=== PATIENT | male | born 1965 | race Caucasian/White ===

== ENCOUNTER 2017-06-25 23:40 | Emergency (ER) | payer MEDICAID ==
[~2017-06-25] VITALS: Ht 185.4 cm; Wt 91.2 kg
[~2017-06-25 23:40] MED LIST: CYCLOBENZAPRINE10 MG ORAL; IBUPROFEN600 MG ORAL; NKM
[2017-06-26] MEDS ORDERED: Bacitracin Oint UD TOPIC ONE (00:15)
[2017-06-26] MEDS ORDERED: DOXYCYCLINE MO100 MG ORAL (00:16)
--- NOTE | 2017-06-26 00:16 | Emergency Room Report ---
History of Present Illness General Chief Complaint: Upper Extremity Injury Source: Patient Present Illness HPI This is a 51-year-old male who is right-hand dominant. He presents with chief complaint splinter in his right index finger. He was cleaning the floor yesterday and had a splinter into his right index finger. He went to get a manicure and had it removed. He thought that there may be still a piece in there. Complaining of some pain and tenderness in that area. No drainage. No fever chills but no nausea no vomiting. No other injury. Allergies: Coded Allergies: No Known Allergies (Unverified , 06/19/13) Patient History Past Medical History: see triage record, old chart reviewed Past Surgical History: other Pertinent Family History: none Social History: Denies: smoking Immunizations: other Reviewed Nursing Documentation: PMH: Agreed, PSxH: Agreed Review of Systems Eye: Denies: eye pain, blurred vision ENT: Denies: ear pain, nose congestion, throat swelling Respiratory: Denies: cough, shortness of breath Cardiovascular: Denies: chest pain, palpitations Gastrointestinal: Denies: abdominal pain, diarrhea, nausea, vomiting Musculoskeletal: Denies: back pain, joint pain Skin: Denies: rash Neurological: Denies: headache, numbness Endocrine: Denies: increased thirst, increased urine Hematologic/Lymphatic: Denies: easy bruising All Other Systems: negative except mentioned in HPI Physical Exam Vital Signs Date Time Temp Pulse Resp B/P (MAP) Pulse Ox O2 Delivery O2 Flow Rate FiO2 06/25/17 23:47 98.1 83 16 123/82 96 Room Air vitals normal Sp02 EP Interpretation: reviewed, normal General Appearance: well appearing, no apparent distress, alert Head: normocephalic, atraumatic Eyes: bilateral eye PERRL, bilateral eye EOMI ENT: hearing grossly normal, normal pharynx Neck: full range of motion, supple, no meningismus Respiratory: chest non-tender, lungs clear, normal breath sounds Cardiovascular #1: regular rate, rhythm, no murmur Gastrointestinal: normal bowel sounds, non tender, no mass, no organomegaly, no bruit, non-distended Musculoskeletal: back normal, gait/station normal, normal range of motion, other - Right index finger: There is tenderness on the radial aspect of the nail. No obvious foreign body. Sensation normal. Full range of motion of the joint. Neurologic: alert, oriented x3 Psychiatric: mood/affect normal Skin: warm/dry Medical Decision Making Diagnostic Impression: Primary Impression: Foreign body (FB) in soft tissue ER Course Patient with a foreign body in his finger nail. No obvious residual foreign body. They may still be small specks of foreign body. There was only serous drainage when I tried to look for it. We'll put on antibiotics Last Vital Signs Date Time Temp Pulse Resp B/P (MAP) Pulse Ox O2 Delivery O2 Flow Rate FiO2 06/25/17 23:47 98.1 83 16 123/82 96 Room Air Status: improved Disposition: HOME, SELF-CARE Condition: Stable Scripts Doxycycline Monohydrate* (DOXYCYCLINE MONOHYDRATE*) 100 Mg Capsule 100 MG ORAL Q12H, #14 CAP 0 Refills Prov: VANGIE ORDAZ M.D. 06/26/17 Referrals: [facility],REFERRING (PCP) Additional Instructions: Keep wound clean. Followup with your Dr. in 2-3 days for recheck. Return if symptom worsen. VANGIE ORDAZ M.D. Jun 26, 2017 00:16
[2017-06-26 00:23] VITALS: BP 123/82
== END 2017-06-26 00:25 | disposition home or self-care (01) ==
LOC: EMR 23:51
DX: S60.450A Superficial foreign body of right index finger, initial encounter (principal); W45.8XXA Other foreign body or object entering through skin, initial encounter; Y93.E5 Activity, floor mopping and cleaning; Y92.009 Unspecified place in unspecified non-institutional (private) residence as the place of occurrence of the external cause
CPT/HCPCS: 99283

== ENCOUNTER 2018-01-02 16:08 | Emergency (ER) | payer MEDICAID ==
[~2018-01-02] VITALS: Ht 188 cm; Wt 90.7 kg
[~2018-01-02 16:08] MED LIST changes: +DOXYCYCLINE MO100 MG ORAL
[2018-01-02] MEDS ORDERED: ADDERAL20 MG ORAL (16:19)
--- NOTE | 2018-01-02 16:51 | Emergency Room Report ---
History of Present Illness General Chief Complaint: General Complaint Source: Patient Present Illness HPI 52-year-old male patient presents ER complaining of left shoulder pain radiating to his elbow. Reports pain is present for 2 weeks. Reports that he sleeps on his left side which has exacerbated his pain. Denies other Injury. Denies history of cardiac disease. Denies chest pain, shortness breath, abdominal pain. Denies history of CO or stroke. Reports pain with movement. Reports pain is reproducible. Denies other acute symptoms. Denies hitting his head or loss of consciousness. Allergies: Coded Allergies: No Known Allergies (Unverified , 06/19/13) Patient History Past Medical History: see triage record Reviewed Nursing Documentation: PMH: Agreed; PSxH: Agreed Nursing Documentation-PMH Past Medical History: No History, Except For Hx Cardiac Problems: No Hx Hypertension: No Hx Pacemaker: No Hx Asthma: No Hx COPD: No Hx Diabetes: No Hx Cancer: No Hx Gastrointestinal Problems: No Hx Dialysis: No History Of Psychiatric Problem: Yes - ADHD Hx Neurological Problems: No Hx Cerebrovascular Accident: No Hx Seizures: No Review of Systems All Other Systems: negative except mentioned in HPI Physical Exam Vital Signs Date Time Temp Pulse Resp B/P (MAP) Pulse Ox O2 Delivery O2 Flow Rate FiO2 01/02/18 16:13 98.1 88 16 140/97 96 Room Air 98.1 Sp02 EP Interpretation: reviewed, normal General Appearance: well appearing, no apparent distress, alert, GCS 15, non- toxic Head: normocephalic, atraumatic Neck: full range of motion Respiratory: lungs clear, normal breath sounds, no rhonchi, no respiratory distress, no accessory muscle use, no wheezing, speaking full sentences Cardiovascular #1: regular rate, rhythm, no edema Genitourinary: no CVA tenderness Musculoskeletal: back normal, digits/nails normal, gait/station normal, normal range of motion, non-tender, other - NVI, AIN/PIN/Radial nerve intact, axillary nerve intact, able to make fist, positive Torrez, negative sulcus sign, negative skin tenting, negative Adson test Neurologic: alert, oriented x3, responsive, motor strength/tone normal, sensory intact Psychiatric: mood/affect normal Skin: no rash Medical Decision Making PA Attestation Dr. Rojas is my supervising Physician whom patient management has been discussed with. Diagnostic Impression: Primary Impression: Shoulder impingement ER Course Pt. presents to the ED c/o left shoulder pain. Ddx considered but are not limited to fracture, sprain, strain, contusion, dislocation. No erythema, no warmth to touch, no fever, nontoxic appearing, low suspicion for septic joint. Vital signs: are WNL, pt. is afebrile Ordered X-ray and pain medication. ER COURSE Provided with pain medication. An X-ray of the left shoulder shows no acute disease, acromioclavicular joint arthrosis per the official reading. Take ibuprofen for pain symptoms. Possible muscle spasm vs impingement and physical exam findings, positive Torrez sign. follow-up with primary care provider to assess referral to orthopedic and physical therapy as needed. Performed range of motion exercises to prevent stiffness. Reports feels better with arm in sling. Sling was applied to the left shoulder and was checked afterwards by me showing good alignment and support with distal neurovascular functioning intact. Perform range of motion exercises. Do not sleep on left arm. Patient instructed on RICE method: rest, ice, compression, elevation. Patient instructed on rest, ice and heat. Patient instructed to be WBAT Followup with primary care provider. Discuss referral to ortho/pain management/ PT as needed. Discuss further imaging with MRI/CT as needed. DISCHARGE: -Rx provided for Ibuprofen for pain symptoms. -Rx provided for Methocarbamol. SE drowsiness, do not drink, drive, or operate heavy machinery while using. At this time pt. is stable for d/c to home. Patient is resting comfortably, in no acute distress, nontoxic appearing, talking without difficulty. Will provide printed patient care instructions, and any necessary prescriptions. Patient instructed to follow with primary care provider in 3 - 5 days and to request further follow-up as needed. Care plan and follow up instructions have been discussed with the patient prior to discharge. Take medications as directed. Patient questions asked and answered. Patient reports understanding and agreement to treatment plan. ER precautions given, patient instructed to return to ER immediately for any new or worsening of symptoms. - Please note that this Emergency Department Report was dictated using [employer] technology software, occasionally this can lead to erroneous entry secondary to interpretation by the dictation equipment. Other X-Ray Diagnostic Results Other X-Ray Diagnostic Results : X-Ray ordered: shoulder left # of Views/Limited Vs Complete: 4 View Indication: Pain EP Interpretation: Yes PA Xray: Interpretation reviewed, by supervising MD, and agrees with findings. Interpretation: no dislocation, no soft tissue swelling, no fractures, other - acromioclavicular joint arthrosis Impression: Other - arthrosis PA Scribe Text Estrada Dent PA-C Last Vital Signs Date Time Temp Pulse Resp B/P (MAP) Pulse Ox O2 Delivery O2 Flow Rate FiO2 01/02/18 16:13 98.1 88 16 140/97 96 Room Air 98.1 Disposition: HOME, SELF-CARE Condition: Stable Scripts Methocarbamol* (ROBAXIN*) 500 Mg Tablet 500 MG PO TID, #21 TAB 0 Refills Prov: Denis Dent 01/02/18 Ibuprofen* (MOTRIN*) 600 Mg Tablet 600 MG ORAL Q8H PRN for For Pain, #30 TAB 0 Refills Prov: Denis Dent 01/02/18 Patient Instructions: Generic Shoulder Exercises-SportsMed, Shoulder Pain, Easy -to-Read Additional Instructions: Patient instructed to follow up with primary care provider and discuss further referral to orthopedics and physical therapy. Discuss further imaging at that time. Patient instructed on RICE method: rest, ice, compression, elevation. Patient instructed to WBAT. Take medications as directed. SE drowsiness, do not take prior to drinking, driving, or operating heavy machinery. Patient questions asked and answered. ER precautions given, patient instructed to return to ER immediately for any new or worsening of symptoms. Denis Dent Jan 02, 2018 16:51
[2018-01-02 17:43] VITALS: BP 140/97
[2018-01-02] MEDS ORDERED: ROBAXIN500 MG PO (17:43)
[2018-01-02] MEDS ORDERED: IBUPROFEN600 MG ORAL (17:43)
--- NOTE | 2018-01-02 17:58 | Diagnostic Imaging Report ---
EXAM: XR Left Shoulder Complete, 2 or More Views CLINICAL HISTORY: PAIN TECHNIQUE: Two or more views of the left shoulder. COMPARISON: No relevant prior studies available. FINDINGS: Bones/joints: Mild acromioclavicular joint arthrosis. No acute fracture. No dislocation. Soft tissues: Unremarkable. IMPRESSION: 1. No acute abdomen. 2. Mild acromioclavicular joint arthrosis.
[2018-01-02 18:10] VITALS: BP 140/97
== END 2018-01-02 18:19 | disposition home or self-care (01) ==
LOC: EMR 16:50
DX: M25.812 Other specified joint disorders, left shoulder (principal); F90.9 Attention-deficit hyperactivity disorder, unspecified type
CPT/HCPCS: 99284

== ENCOUNTER 2018-04-30 14:01 | Emergency (ER) | payer MEDICAID ==
[~2018-04-30] VITALS: Ht 188 cm; Wt 96.2 kg
[~2018-04-30 14:01] MED LIST changes: +ADDERAL20 MG ORAL; +ROBAXIN500 MG PO
[2018-04-30 14:20] VITALS: BP 152/99
--- NOTE | 2018-04-30 14:35 | Emergency Room Report ---
History of Present Illness General Chief Complaint: Skin Rash/Abscess Source: Patient Present Illness HPI 51 YO male presents to the ED c/o Itching, swelling, and erythema of left forearm x 2 days. He reports 7/10 in severity burning sensation and states lesion originated as a spider bite. Pt. denies fevers, chills or swollen tender lymph nodes. Denies lesions/rashes elsewhere on the body. Denies new medications or body washes or creams. Denies swelling of the lips, tongue , throat or airway. Denies wheezing, or shortness of breath. Denies recent travel, recent illness or ill contacts. denies blisters, oral lesions, or sloughing of the skin. Allergies: Coded Allergies: No Known Allergies (Unverified , 06/19/13) Patient History Past Medical History: see triage record Past Surgical History: none Pertinent Family History: none Reviewed Nursing Documentation: PMH: Agreed; PSxH: Agreed Nursing Documentation-PMH Past Medical History: No Stated History Hx Cardiac Problems: No Hx Hypertension: No Hx Pacemaker: No Hx Asthma: No Hx COPD: No Hx Diabetes: No Hx Cancer: No Hx Gastrointestinal Problems: No Hx Dialysis: No Hx Neurological Problems: No Hx Cerebrovascular Accident: No Hx Seizures: No Review of Systems All Other Systems: negative except mentioned in HPI Physical Exam Vital Signs Date Time Temp Pulse Resp B/P (MAP) Pulse Ox O2 Delivery O2 Flow Rate FiO2 04/30/18 14:12 98.2 86 18 152/99 97 Room Air Sp02 EP Interpretation: reviewed, normal General Appearance: no apparent distress, alert, GCS 15, non-toxic Head: normocephalic, atraumatic Eyes: bilateral eye normal inspection, bilateral eye PERRL ENT: hearing grossly normal, no angioedema, normal voice Neck: full range of motion Respiratory: lungs clear, normal breath sounds, no wheezing, speaking full sentences Cardiovascular #1: regular rate, rhythm Musculoskeletal: back normal, gait/station normal, normal range of motion, non- tender Neurologic: alert, oriented x3, responsive, motor strength/tone normal, sensory intact, speech normal, grossly normal Psychiatric: judgement/insight normal Skin: warm/dry, well hydrated, other - indurated lesion with surrounding erythema and swelling approximately 3 inches in diameter. no blisters or vesicles. no palpable fluctuance Lymphatic: no adenopathy Medical Decision Making PA Attestation Dr. Rojas is my supervising Physician whom patient management has been discussed with. Diagnostic Impression: Primary Impression: Infected insect bite of forearm Qualified Codes: S50.862A - Insect bite (nonvenomous) of left forearm, initial encounter; L08.9 - Local infection of the skin and subcutaneous tissue, unspecified; W57.XXXA - Bitten or stung by nonvenomous insect and other nonvenomous arthropods, initial encounter Additional Impression: Cellulitis Qualified Codes: L03.114 - Cellulitis of left upper limb ER Course Pt. presents to the ED c/o Itching, swelling, and erythema of left forearm x 2 days. He reports 7/10 in severity burning sensation and states lesion originated as a spider bite. Pt. denies fevers, chills or swollen tender lymph nodes. Denies lesions/rashes elsewhere on the body. Denies new medications or body washes or creams. Denies swelling of the lips, tongue , throat or airway. Denies wheezing, or shortness of breath. Denies recent travel, recent illness or ill contacts. denies blisters, oral lesions, or sloughing of the skin. Ddx considered but are not limited to cellulitis, scabies, insect bites, tic bites, spider bites, contact dermatitis, Drug reaction, allergic reaction, fungal infection, lice. Vital signs: are WNL, pt. is afebrile H&PE are most consistent with infected insect bite. ORDERS: none required at this time, the diagnosis is clinical ED INTERVENTIONS: None required at this time. - no palpable fluctuance to warrant I & D. DISCHARGE: At this time pt. is stable for d/c to home. Will provide printed patient care instructions, and any necessary prescriptions. Care plan and follow up instructions have been discussed with the patient prior to discharge. Last Vital Signs Date Time Temp Pulse Resp B/P (MAP) Pulse Ox O2 Delivery O2 Flow Rate FiO2 04/30/18 14:20 98.2 86 18 152/99 97 Room Air Disposition: HOME, SELF-CARE Condition: Stable Scripts Hydrocortisone (Hydrocortisone Cream 2.5%) Y Cream.appl 1 APPLIC TP BID, #22 GM Prov: Yu Sanches 04/30/18 Trimethoprim/Sulfamethoxazole 160/800* (BACTRIM DS TABLET*) 1 Each Tablet 1 TAB ORAL TWICE A DAY for 7 Days, #14 TAB Prov: Yu Sanches 04/30/18 Cephalexin* (KEFLEX*) 500 Mg Capsule 500 MG ORAL EVERY 12 HOURS for 7 Days, #14 CAP 0 Refills Prov: Yu Sanches 04/30/18 Patient Instructions: Insect Bite, [id number] Additional Instructions: Take medications as directed. Follow up with a Primary Care Provider in 3-5 days, even if your symptoms have resolved. --Please review list of primary care clinics, if you do not already have a primary care provider Return sooner to ED if new symptoms occur, or current symptoms become worse. - Please note that this Emergency Department Report was dictated using [employer] technology software, occasionally this can lead to erroneous entry secondary to interpretation by the dictation equipment. Yu Sanches Apr 30, 2018 14:35
[2018-04-30] MEDS ORDERED: BACTRIM DS TAB1 EAC1 ORAL (14:37)
[2018-04-30] MEDS ORDERED: HYDROCORTISONE30 G2 TP (14:37)
[2018-04-30] MEDS ORDERED: CEPHALEXIN500 MG ORAL (14:37)
[2018-04-30 14:44] VITALS: BP 152/99
== END 2018-04-30 14:45 | disposition home or self-care (01) ==
LOC: EMR 14:41
DX: S50.862A Insect bite (nonvenomous) of left forearm, initial encounter (principal); W57.XXXA Bitten or stung by nonvenomous insect and other nonvenomous arthropods, initial encounter; Y92.9 Unspecified place or not applicable; L03.114 Cellulitis of left upper limb
CPT/HCPCS: 99283

== ENCOUNTER 2018-10-09 15:28 | Emergency (ER) | payer MEDICAID ==
[~2018-10-09] VITALS: Ht 188 cm; Wt 95.3 kg
[~2018-10-09 15:28] MED LIST changes: +BACTRIM DS TAB1 EAC1 ORAL; +CEPHALEXIN500 MG ORAL; +HYDROCORTISONE30 G2 TP
--- NOTE | 2018-10-09 16:04 | NUR ---
ED Nurse Note: PT WALKED IN TO ER TODAY FROM HOME. AOX4. PT C/O LEFT SIDED LOWER BACK PAIN, 7/ X 3 DAYS AGO. PT DENIES ANY RECENT INJURY OR TRAUMA. PT DENIES ANY NUMBNESS OR TINGLING. GAIT STEADY. PT STATES HE HAS HX OF KIDNEY STONES AND STATES THE PAIN IS SIMILAR BUT NOT SEVERE.
[2018-10-09 16:05] VITALS: BP 128/84
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
[2018-10-09 16:53] LABS: BILIRUBIN, URINE 2+ (NEGATIVE); GLUCOSE, URINE (UA) NEGATIVE (NEGATIVE); KETONES,URINE NEGATIVE (NEGATIVE); LEUKOCYTE ESTERASE ,URINE 2+ (NEGATIVE); NITRITE,URINE POSITIVE (NEGATIVE); PH,URINE 5 (4.5-8.0); PROTEIN,URINE NEGATIVE (NEGATIVE); UROBILINOGEN,URINE 8 MG/DL (0.0-1.0)
[2018-10-09 16:54] LABS: APPEARANCE,URINE SLIGHTLY CLOUDY; COLOR,URINE ORANGE
[2018-10-09] MEDS ORDERED: CEPHALEXIN500 MG ORAL (17:16)
[2018-10-09] MEDS ORDERED: PHENAZOPYRIDIN100 MG ORAL (17:16)
[2018-10-09 17:26] VITALS: BP 126/86
--- NOTE | 2018-10-09 17:26 | NUR ---
ED Nurse Note: PT SITTING PEACEFULLY IN BED IN NAD. AOX4. PRESCRIPTIONS AND DISCHARGE PAPERWORK EXPLAINED TO PT. PT VERBALIZES UNDERSTANDING AND ALL QUESTIONS ANSWERED. PRESCRIPTIONS AND DISCHARGE PAPERWORK GIVEN TO PT AND ID WRISTBAND REMOVED. PT WALKED OUT OF ER WITH STEADY GAIT AND ALL BELONGINGS.
== END 2018-10-09 17:28 | disposition home or self-care (01) ==
LOC: EMR 16:35
DX: N39.0 Urinary tract infection, site not specified (principal)
CPT/HCPCS: 81003; 87086; 99283

== ENCOUNTER 2018-10-12 03:40 | Emergency (ER) | payer MEDICAID ==
[~2018-10-12] VITALS: Ht 188 cm; Wt 92.5 kg
[~2018-10-12 03:40] MED LIST changes: +PHENAZOPYRIDIN100 MG ORAL
--- NOTE | 2018-10-12 03:59 | Emergency Room Report ---
History of Present Illness General Chief Complaint: Pain Source: Patient Present Illness HPI Is a 52-year-old male with a history of recurrent urinary tract infection. He presents with chief complaint of left pelvic pain. He was here about 3 days ago and diagnosed a UTI. Was given Keflex. Initially he had flank pain but that resolved but now the pain is localized to the left pelvic area. His been ongoing for the last 2 days. No fever chills but no nausea no vomiting. No dysuria frequency. He did not know if anything different antibiotics. He said Bactrim worked for him in the past. Allergies: Coded Allergies: No Known Allergies (Unverified , 06/19/13) Patient History Past Medical History: see triage record, old chart reviewed Past Surgical History: none Pertinent Family History: none Social History: Reports: smoking Immunizations: other Reviewed Nursing Documentation: PMH: Agreed; PSxH: Agreed Nursing Documentation-PMH Hx Hypertension: No Hx Pacemaker: No Hx Asthma: No Hx COPD: No Hx Diabetes: No Hx Cancer: No Hx Gastrointestinal Problems: No Hx Dialysis: No Hx Neurological Problems: No Hx Cerebrovascular Accident: No Hx Seizures: No Review of Systems Eye: Denies: eye pain, blurred vision ENT: Denies: ear pain, nose congestion, throat swelling Respiratory: Denies: cough, shortness of breath Cardiovascular: Denies: chest pain, palpitations Gastrointestinal: Reports: abdominal pain; Denies: diarrhea, nausea, vomiting Musculoskeletal: Denies: back pain, joint pain Skin: Denies: rash Neurological: Denies: headache, numbness Endocrine: Denies: increased thirst, increased urine Hematologic/Lymphatic: Denies: easy bruising All Other Systems: negative except mentioned in HPI Physical Exam Vital Signs Date Time Temp Pulse Resp B/P (MAP) Pulse Ox O2 Delivery O2 Flow Rate FiO2 10/12/18 03:45 98.1 83 16 132/94 95 Room Air vitals normal Sp02 EP Interpretation: reviewed, normal General Appearance: well appearing, no apparent distress, alert Head: normocephalic, atraumatic Eyes: bilateral eye PERRL, bilateral eye EOMI ENT: hearing grossly normal, normal pharynx Neck: full range of motion, supple, no meningismus Respiratory: chest non-tender, lungs clear, normal breath sounds Cardiovascular #1: regular rate, rhythm, no murmur Gastrointestinal: normal bowel sounds, non tender, no mass, no organomegaly, no bruit, non-distended Musculoskeletal: back normal, gait/station normal, normal range of motion Psychiatric: mood/affect normal Skin: warm/dry Medical Decision Making Diagnostic Impression: Primary Impression: Abdominal pain Qualified Codes: R10.32 - Left lower quadrant pain ER Course Patient with left lower quadrant abdominal pain/pelvic pain. Urinalysis clean. The patient continue with antibiotics. No evidence of hernia, diverticulitis , appendicitis to name a few. No evidence of acute abdomen or obstruction. CT/MRI/US Diagnostic Results CT/MRI/US Diagnostic Results : Imaging Test Ordered: CT abdomen and pelvis Impression Read by radiologist. Appendix normal. No obstruction. Diverticulosis without diverticulitis. Last Vital Signs Date Time Temp Pulse Resp B/P (MAP) Pulse Ox O2 Delivery O2 Flow Rate FiO2 10/12/18 03:45 98.1 83 16 132/94 95 Room Air Status: improved Disposition: HOME, SELF-CARE Condition: Stable Scripts Ibuprofen* (MOTRIN*) 600 Mg Tablet 600 MG ORAL THREE TIMES A DAY, #30 TAB 0 Refills Prov: Lul Faria MD 10/12/18 Referrals: [facility],REFERRING (PCP) Additional Instructions: Continue with antibiotics. Follow-up with your doctor in 7 days. Return if worse. Lul Faria MD Oct 12, 2018 03:59
--- NOTE | 2018-10-12 04:00 | NUR ---
ED Nurse Note: RECIEVED PT FROM HOME, AWAKE, ALERT AND ORIENTED X 4, PT SEEN HERE AND TREATED FOR UTI 2 DAYS AGO AND STATES STILL HAS PAIN AT 4/10, DENIES FEVERS, NAUSEA, VOMITING OR PAIN AT HIGHER LEVEL, PT URINE SAMPLE COLLECTED AND ASSISTED TO AJAY, PT DENIES CP, SOB, OR ANY OTHER COMPLAINTS OR DISCOMFORTS, WILL RESUME CARE ORDERED AND CONTINUE TO CLOSELY MONITOR.
[2018-10-12 04:30] LABS: APPEARANCE,URINE CLEAR; BILIRUBIN, URINE NEGATIVE (NEGATIVE); GLUCOSE, URINE (UA) NEGATIVE (NEGATIVE); KETONES,URINE NEGATIVE (NEGATIVE); LEUKOCYTE ESTERASE ,URINE 1+ (NEGATIVE); PH,URINE 6 (4.5-8.0); PROTEIN,URINE NEGATIVE (NEGATIVE); UROBILINOGEN,URINE 1 MG/DL (0.0-1.0)
[2018-10-12 04:35] LABS: COLOR,URINE YELLOW
--- NOTE | 2018-10-12 04:35 | NUR ---
ED Nurse Note: PT RETURNED FROM IMAGING, NO DISTRESS OR CHANGES NOTED.
[2018-10-12 04:36] LABS: NITRITE,URINE NEGATIVE (NEGATIVE)
[2018-10-12 05:15] VITALS: BP 129/88
[2018-10-12] MEDS ORDERED: IBUPROFEN600 MG ORAL (05:26)
--- NOTE | 2018-10-12 05:30 | NUR ---
ER DISCHARGE NOTE: Patient is cleared to be discharged per ERMD, pt is aox4, on room air, with stable vital signs. pt was given dc and prescription instructions, pt was able to verbalize understanding, pt id band removed without complications. pt is able to ambulate with steady gait. pt took all belongings.
[2018-10-12 05:45] VITALS: BP 129/88
--- NOTE | 2018-10-12 11:42 | Diagnostic Imaging Report ---
Indication: Abdominal pain and groin pain for one week Technique: Spiral acquisitions obtained through the abdomen and pelvis. No oral contrast utilized, per emergency room physician request No IV contrast utilized, per referring physician request.. Multiplanar reconstructions were generated. Total dose length product 860.43 mGycm. CTDIvol(s) 15.03 mGy. Dose reduction achieved using automated exposure control Comparison: 11/05/2009 Findings: The appendix is normal. There is no evidence of diverticulosis or acute diverticulitis. No small bowel distention. No free or loculated intraperitoneal gas or fluid is evident. There is a small duodenal diverticulum incidentally noted. Distal esophagus and stomach are unremarkable. Lack of IV contrast was assessment of the solid organs. The liver, gallbladder, bile ducts, pancreas, spleen, adrenals, kidneys are unremarkable. No renal arterial calculi, hydronephrosis, or hydroureter. Previously demonstrated small right renal calculus is no longer evident. No retroperitoneal or mesenteric mass or adenopathy. No pelvic mass or adenopathy. The included lung bases demonstrate some atelectasis or scarring in the inferior lingula. The lumbar spine demonstrates mild degenerative spondylosis and likely spinal stenosis predominantly due to short pedicles. This is also evident previously. Impression: No acute abnormality. Spinal stenosis Incidental finding small duodenal diverticulum The CT scanner at [facility] is accredited by the [employer] and the scans are performed using protocols designed to limit radiation exposure to as low as reasonably achievable to attain images of sufficient resolution adequate for diagnostic evaluation.
== END 2018-10-12 05:45 | disposition home or self-care (01) ==
LOC: EMR 03:57
DX: R10.32 Left lower quadrant pain (principal); F17.200 Nicotine dependence, unspecified, uncomplicated; K57.90 Diverticulosis of intestine, part unspecified, without perforation or abscess without bleeding
CPT/HCPCS: 74176; 81003; 99284

== ENCOUNTER 2018-10-16 02:26 | Emergency (ER) | payer MEDICAID ==
[~2018-10-16] VITALS: Ht 188 cm; Wt 93.0 kg
--- NOTE | 2018-10-16 02:35 | NUR ---
ED Nurse Note: patient walked into ED c/o upper left leg pain that he rates a 7/10 pain, patient states that he firt experienced pain on the lower back after being diagnosed with a UTI however state that the pain has now moved to the patients left upper leg, patient is alert and oriented x4, ambulatory with a steady gait, with a slight elevation on blood pressure of 161/98
[2018-10-16 02:37] VITALS: BP 161/101
[2018-10-16] MEDS ORDERED: PHENAZOPYRIDIN100 MG ORAL (02:41)
[2018-10-16 03:02] LABS: APPEARANCE,URINE CLEAR; BILIRUBIN, URINE 3+ (NEGATIVE); COLOR,URINE BROWN; GLUCOSE, URINE (UA) NEGATIVE (NEGATIVE); KETONES,URINE NEGATIVE (NEGATIVE); LEUKOCYTE ESTERASE ,URINE 1+ (NEGATIVE); NITRITE,URINE POSITIVE (NEGATIVE); PH,URINE 6 (4.5-8.0); PROTEIN,URINE NEGATIVE (NEGATIVE); UROBILINOGEN,URINE 8 MG/DL (0.0-1.0)
[2018-10-16] MEDS ORDERED: IBUPROFEN600 MG ORAL (03:40)
[2018-10-16] MEDS ORDERED: ROBAXIN-750750 MG PO (03:40)
[2018-10-16 03:46] VITALS: BP 142/85
--- NOTE | 2018-10-16 04:12 | Emergency Room Report ---
History of Present Illness General Chief Complaint: Male Urogenital Problems Source: Patient Present Illness HPI 52-year-old male presents ED for evaluation. Complaining of left groin pain. Started yesterday. Dull, 5 out of 10, nonradiating. Denies any scrotal pain. Denies any dysuria or hematuria. Denies any urethral discharge. States he was seen here a few days ago for back pain. Had UTI and was discharged on antibiotics. States he completed antibiotic prescription. Denies any back pain at this time. No other aggravating relieving factors. Denies any other associated symptoms Allergies: Coded Allergies: No Known Allergies (Unverified , 06/19/13) Patient History Past Medical History: none Past Surgical History: none Pertinent Family History: none Social History: Denies: smoking, alcohol use, drug use Immunizations: UTD Reviewed Nursing Documentation: PMH: Agreed; PSxH: Agreed Nursing Documentation-PMH Past Medical History: No History, Except For Hx Hypertension: No Hx Pacemaker: No Hx Asthma: No Hx COPD: No Hx Diabetes: No Hx Cancer: No Hx Gastrointestinal Problems: No Hx Dialysis: No Hx Neurological Problems: No Hx Cerebrovascular Accident: No Hx Seizures: No Review of Systems All Other Systems: negative except mentioned in HPI Physical Exam Vital Signs Date Time Temp Pulse Resp B/P (MAP) Pulse Ox O2 Delivery O2 Flow Rate FiO2 10/16/18 02:33 98.6 98 16 161/101 96 Room Air Sp02 EP Interpretation: reviewed, normal General Appearance: no apparent distress, alert, GCS 15, non-toxic Head: normocephalic, atraumatic Eyes: bilateral eye normal inspection, bilateral eye PERRL ENT: hearing grossly normal, normal pharynx, no angioedema, normal voice Neck: full range of motion, supple/symm/no masses Respiratory: chest non-tender, lungs clear, normal breath sounds, speaking full sentences Cardiovascular #1: regular rate, rhythm, no edema Cardiovascular #2: 2+ carotid (R), 2+ carotid (L), 2+ radial (R), 2+ radial (L) , 2+ dorsalis pedis (R), 2+ dorsalis pedis (L) Gastrointestinal: normal bowel sounds, non tender, soft, non-distended, no guarding, no rebound Rectal: deferred Genitourinary: normal inspection, no CVA tenderness, scrotum normal, other - TTP L inguinal area. no fluctuance or discharge. no evidence of hernia Musculoskeletal: back normal, gait/station normal, normal range of motion, non- tender Neurologic: alert, oriented x3, responsive, motor strength/tone normal, sensory intact, speech normal Psychiatric: judgement/insight normal, memory normal, mood/affect normal, no suicidal/homicidal ideation Reflexes: 3+ bicep (R), 3+ bicep (L), 3+ tricep (R), 3+ tricep (L), 3+ knee (R) , 3+ knee (L) Skin: normal color, no rash, warm/dry, well hydrated Lymphatic: no adenopathy Medical Decision Making Diagnostic Impression: Primary Impression: Groin pain Qualified Codes: R10.32 - Left lower quadrant pain ER Course Hospital Course 52 yo M presents to ED c/o L groin pain. Differential diagnoses include: UTI, kidney stone, hernia Clinical course Patient placed on stretcher. After initial history, physical exam reveals male in no acute distress. On exam there is some tenderness to the left inguinal area. No fluctuance or discharge. No scrotal pain. Evidence of hernia. Patient was seen here previously 10/09 and 10/11. Concern for UTI. Was discharged on antibiotics. Urine culture came back with no growth. Patient also had CT because of history of kidney stones. No evidence of kidney stones or other acute pathology noted UA noted to be unremarkable. I see no reason to repeat antibiotics at this time. Patient appears more likely muscular, likely hip flexor strain or groin strain Patient can be safely discharged to home. Discussed findings with patient. We' ll provide prescriptions for ibuprofen and Robaxin. I'll also provide orthopedic referral Diagnosis - groin pain Stable and discharged home with prescriptions for Rx motrin, robaxin. Instructed to followup with ortho. Return to ED if symptoms recur or worsen Labs Test 10/16/18 02:44 Urine Color Brown Urine Appearance Clear Urine pH 6 (4.5-8.0) Urine Specific [place] 1.015 (1.005-1.035) Urine Protein Negative (NEGATIVE) Urine Glucose (UA) Negative (NEGATIVE) Urine Ketones Negative (NEGATIVE) Urine Blood Negative (NEGATIVE) Urine Nitrite Positive (NEGATIVE) Urine Bilirubin 3+ (NEGATIVE) Urine Ictotest Negative (NEGATIVE) Urine Urobilinogen 8 MG/DL (0.0-1.0) Urine Leukocyte Esterase 1+ (NEGATIVE) Urine RBC 0-2 /HPF (0 - 0) Urine WBC 0-2 /HPF (0 - 0) Urine Squamous Epithelial Cells Occasional /LPF Urine Bacteria Occasional /HPF (NONE) Last Vital Signs Date Time Temp Pulse Resp B/P (MAP) Pulse Ox O2 Delivery O2 Flow Rate FiO2 10/16/18 03:46 98.6 80 16 142/85 96 Room Air Status: improved Disposition: HOME, SELF-CARE Condition: Stable Scripts Methocarbamol* (ROBAXIN-750*) 750 Mg Tablet 750 MG PO TID, #21 TAB 0 Refills Prov: Zack Patricia MD 10/16/18 Ibuprofen* (MOTRIN*) 600 Mg Tablet 600 MG ORAL Q8H PRN for For Pain, #30 TAB 0 Refills Prov: Zack Patricia MD 10/16/18 [facility] Open 24 hour /7 days a week by Appointment Only [address] [place] [id number] Patient Instructions: Adductor Muscle Strain With [facility] Zack Patricia MD Oct 16, 2018 04:12
== END 2018-10-16 03:45 | disposition home or self-care (01) ==
LOC: EMR 02:44
DX: R10.32 Left lower quadrant pain (principal); Z87.442 Personal history of urinary calculi
CPT/HCPCS: 81003; 99283

== ENCOUNTER 2019-03-02 17:32 | Emergency (ER) | payer MEDICAID ==
[~2019-03-02] VITALS: Ht 188 cm; Wt 95.3 kg
[~2019-03-02 17:32] MED LIST changes: +ROBAXIN-750750 MG PO
--- NOTE | 2019-03-02 17:42 | NUR ---
ED Nurse Note: PT WALKED IN TO ER TODAY FROM HOME. AOX4. PT C/O BLISTER TO RIGHT MEDIAL ANKLE X 2 DAYS AGO AFTER SUSPECTED BUG BITE. PT C/O ITCHING AND MILD PAIN TO SITE. NO DRAINAGE OR BLEEDING NOTED.
[2019-03-02 17:44] VITALS: BP 142/86
--- NOTE | 2019-03-02 18:11 | Emergency Room Report ---
History of Present Illness General Chief Complaint: Animal Bite Source: Patient Present Illness HPI 53-year-old male presents to the emergency department complaining of an itchy blister which he states is an insect bite which she sustained 2 days ago on the right ankle. Patient denies pain at this time he is concerned that the insect may have infected him and laid eggs his skin. Patient denies erythema around the blister. He reports blister is still intact. Pt. denies fevers, chills or swollen tender lymph nodes. Denies lesions/rashes elsewhere on the body. Denies new medications or body washes or creams. Denies swelling of the lips, tongue , throat or airway. Denies wheezing, or shortness of breath. Denies recent travel , recent illness or ill contacts. denies ability to make other blisters with palpation, oral lesions, or sloughing of the skin. Allergies: Coded Allergies: No Known Allergies (Unverified , 06/19/13) Patient History Past Medical History: see triage record Past Surgical History: none Pertinent Family History: none Immunizations: UTD Reviewed Nursing Documentation: PMH: Agreed; PSxH: Agreed Nursing Documentation-PMH Past Medical History: No History, Except For Hx Hypertension: No Hx Pacemaker: No Hx Asthma: No Hx COPD: No Hx Diabetes: No Hx Cancer: No Hx Gastrointestinal Problems: No Hx Dialysis: No Hx Neurological Problems: No Hx Cerebrovascular Accident: No Hx Seizures: No Review of Systems All Other Systems: negative except mentioned in HPI Physical Exam Vital Signs Date Time Temp Pulse Resp B/P (MAP) Pulse Ox O2 Delivery O2 Flow Rate FiO2 03/02/19 17:39 98.8 87 20 147/98 (114) 96 Room Air Sp02 EP Interpretation: reviewed, normal General Appearance: no apparent distress, alert, GCS 15, non-toxic Head: normocephalic, atraumatic Eyes: bilateral eye normal inspection, bilateral eye PERRL ENT: hearing grossly normal, no angioedema, normal voice Neck: full range of motion Respiratory: chest non-tender, lungs clear, normal breath sounds, no wheezing, speaking full sentences Cardiovascular #1: regular rate, rhythm Musculoskeletal: back normal, gait/station normal, normal range of motion Neurologic: alert, oriented x3, responsive, motor strength/tone normal, sensory intact, speech normal, grossly normal Psychiatric: judgement/insight normal Skin: rash - single blister with mild surrounding erythema to the right medial ankle, negative niklosky sign, size is approx. 0.5cm in diameter. no other blisters, no vessicles. Lymphatic: no adenopathy Medical Decision Making PA Attestation Dr. Patricia is my supervising Physician whom patient management has been discussed with. Diagnostic Impression: Primary Impression: Insect bite Qualified Codes: S90.561A - Insect bite (nonvenomous), right ankle, initial encounter; W57.XXXA - Bitten or stung by nonvenomous insect and other nonvenomous arthropods, initial encounter ER Course 53-year-old male presents to the emergency department complaining of an itchy blister which he states is an insect bite which she sustained 2 days ago on the right ankle. Patient denies pain at this time he is concerned that the insect may have infected him and laid eggs his skin. Patient denies erythema around the blister. He reports blister is still intact. Pt. denies fevers, chills or swollen tender lymph nodes. Denies lesions/rashes elsewhere on the body. Denies new medications or body washes or creams. Denies swelling of the lips, tongue , throat or airway. Denies wheezing, or shortness of breath. Denies recent travel , recent illness or ill contacts. denies ability to make other blisters with palpation, oral lesions, or sloughing of the skin. Ddx considered but are not limited to cellulitis, scabies, insect bites, tic bites, spider bites, contact dermatitis, Drug reaction, allergic reaction, fungal infection, lice. Vital signs: are WNL, pt. is afebrile H&PE are most consistent with non-complicated insect bite without evidence of infection, or systemic allergic reaction. ORDERS: none required at this time, the diagnosis is clinical ED INTERVENTIONS: Topical antibiotic ointment and sterile Band-Aid are applied by the RN. -I do not identify an emergent condition at this time. With current presentation , pt. is stable for close outpatient follow up and conservative treatment. D/ w pt. to return promptly to ED with worsening or new symptoms.- Pt. verbalizes' understanding and agreement with proposed treatment plan. DISCHARGE: At this time pt. is stable for d/c to home. Will provide printed patient care instructions, and any necessary prescriptions. Care plan and follow up instructions have been discussed with the patient prior to discharge. Last Vital Signs Date Time Temp Pulse Resp B/P (MAP) Pulse Ox O2 Delivery O2 Flow Rate FiO2 03/02/19 17:44 98.6 84 18 142/86 98 Room Air Disposition: HOME, SELF-CARE Condition: Stable Scripts Mupirocin* (MUPIROCIN*) 22 Gm Oint...g. 1 APPLIC TOPIC THREE TIMES A DAY, #22 GM Prov: Yu Sanches 03/02/19 Hydrocortisone 2% Cream (ANTI-ITCH 2% CREAM) Y Cr 1 APPLIC TP Q6HR, #28 GM Prov: Yu Sanches 03/02/19 Referrals: [facility]. [facility] Patient Instructions: Insect Bite Additional Instructions: Take medications as directed. Follow up with a Primary Care Provider in 3-5 days, even if your symptoms have resolved. --Please review list of primary care clinics, if you do not already have a primary care provider Return sooner to ED if new symptoms occur, or current symptoms become worse. - Please note that this Emergency Department Report was dictated using [employer] carbon plant technology software, occasionally this can lead to erroneous entry secondary to interpretation by the dictation equipment. Yu Sanches Mar 02, 2019 18:11
[2019-03-02] MEDS ORDERED: ANTI-ITCH28 G1 TP (18:12)
[2019-03-02] MEDS ORDERED: MUPIROCIN22 GM TOPIC (18:12)
[2019-03-02 18:13] VITALS: BP 138/82
--- NOTE | 2019-03-02 18:13 | NUR ---
ED Nurse Note: PT SITTING PEACEFULLY IN CHAIR IN NAD. AOX4. PRESCRIPTIONS AND DISCHARGE PAPERWORK EXPLAINED TO PT. PT VERBALIZES UNDERSTANDING AND ALL QUESTIONS ANSWERED. PRESCRIPTIONS AND DISCHARGE PAPERWORK GIVEN TO PT AND ID WRISTBAND REMOVED. PT WALKED OUT OF ER WITH STEADY GAIT AND ALL BELONGINGS.
[2019-03-02] MEDS ORDERED: Neosporin Oint Ud Pkt TOPIC ONE (18:20)
== END 2019-03-02 18:30 | disposition home or self-care (01) ==
LOC: EMR 18:03
DX: S90.561A Insect bite (nonvenomous), right ankle, initial encounter (principal); W57.XXXA Bitten or stung by nonvenomous insect and other nonvenomous arthropods, initial encounter; Y92.9 Unspecified place or not applicable
CPT/HCPCS: 99282